=== PATIENT | male | born 1995 | race Caucasian/White ===

== ENCOUNTER 2019-06-01 21:14 | Emergency (ER) | payer SELFPAY ==
[~2019-06-01] VITALS: Ht 72 cm; Wt 65.9 kg
[2019-06-01] MEDS ORDERED: CLIN300C11 PO (21:33)
[2019-06-01] MEDS ORDERED: RX-CLINDAMYCIN 150 MG (CLEOCIN) CAP PPK#4 PO STA (21:34)
--- NOTE | 2019-06-01 21:34 | ED EENT ---
History of Present Illness General Stated Complaint: MIGRAINE SYMPTOMS/DENTAL PAIN Source: patient Exam Limitations: no limitations History of Present Illness Date Seen by Provider: Jun 01, 2019 Time Seen by Provider: 21:30 Initial Comments To ER with reports of a migraine that he relates to dental pain, he relates this dental pain to 2 fractured teeth 1 upper molar and one lower molar both on the right side. They've been fractured for quite some time. Pain started yesterday. He sees [facility] and [place]. States last time he had something similar to this he was given hydrocodone/ibuprofen and it worked very well. Timing/Duration: abrupt Severity: moderate Location: dental Associated Symptoms: denies symptoms Allergies and Home Medications Patient Home Medication List Home Medication List Reviewed: Yes Review of Systems Review of Systems Constitutional: see HPI Eyes: No Symptoms Reported Ears: No Symptoms Reported Nose: no symptoms reported Mouth: see HPI Throat: no symptoms reported Respiratory: no symptoms reported Cardiovascular: no symptoms reported Musculoskeletal: no symptoms reported Skin: no symptoms reported Past Wzhosxi-Ffgwtk-Jnswex Hx Patient Social History Recent Foreign Travel: No Contact w/Someone Who Travel: No Physical Exam Height, Weight, BMI Height: '" Weight: lbs. oz. kg; BMI Method: General Appearance: WD/WN, no apparent distress Eyes: bilateral eye normal inspection, bilateral eye PERRL, bilateral eye EOMI Ears: bilateral ear auricle normal, bilateral ear canal normal, bilateral ear TM normal Mouth/Throat: normal mouth inspection, pharynx normal, dental tenderness (but no swelling ) Neck: non-tender, full range of motion Respiratory: no respiratory distress, no accessory muscle use Gastrointestinal: normal bowel sounds, non tender Neurologic/Psychiatric: alert, normal mood/affect, oriented x 3 Skin: normal color Departure Communication (Admissions) Family Conversation These are not new fractures he states, the pain however is new. Impression Primary Impression: Pain, dental Additional Impression: Fractured tooth Disposition: HOME, SELF-CARE Condition: Stable Departure-Patient Inst. Decision time for Depature: 21:32 Referrals: NO,LOCAL PHYSICIAN (PCP/Family) Primary Care Physician Patient Instructions: Fractured Tooth, Dental Pain (DC) Add. Discharge Instructions: Applied the topical lidocaine on some gauze overlying the teeth and leave it in place for 20 or 30 minutes at a time. Antibiotics as directed. Call your dentist on Monday to make an appointment to be seen as soon as possible. Scripts Clindamycin HCl (Clindamycin HCl) 300 Mg Capsule 300 MG PO TID, #21 CAP Prov: MALIA HARRIS APRN 06/01/19 Work/School Note: Work Release Form Date Seen in the Emergency Department: Jun 01, 2019 Return to Work: Jun 02, 2019 Images Mouth/Nose 1 - Fracture Tooth 2 - Caries, Fracture Tooth MALIA HARRIS APRN Jun 01, 2019 21:34
[2019-06-01] MEDS ORDERED: LIDOCAINE 2% VISCOUS 15 ML UDC PO ONE (21:45)
[2019-06-01] MEDS ORDERED: KETOROLAC 30 MG/ML VIAL IM ONE (21:45)
[2019-06-01 21:56] VITALS: BP 119/89
== END 2019-06-01 21:56 | disposition home or self-care (01) ==
LOC: ER 21:17
DX: S02.5XXA Fracture of tooth (traumatic), initial encounter for closed fracture (principal); X58.XXXA Exposure to other specified factors, initial encounter
CPT/HCPCS: 99284

== ENCOUNTER 2021-08-16 20:01 | Emergency (ER) | payer SELFPAY ==
[~2021-08-16] VITALS: Ht 185 cm; Wt 65.0 kg
[~2021-08-16 20:01] MED LIST: CLIN-144 PO
[2021-08-16] MEDS ORDERED: KETOROLAC 60 MG/2 ML VIAL IM STA (21:12)
[2021-08-16] MEDS ORDERED: ONDANSETRON 4 MG (ZOFRAN) ORAL DISSOLVE TAB SL STA (21:12)
[2021-08-16 21:16] LABS: BILIRUBIN,URINE NEGATIVE (NEGATIVE); CLARITY,URINE CLEAR; COLOR,URINE YELLOW; GLUCOSE, URINE (UA) NEGATIVE (NEGATIVE); KETONES,URINE 2+ (NEGATIVE); LEUKOCYTE ESTERASE ,URINE NEGATIVE (NEGATIVE); NITRITE,URINE NEGATIVE (NEGATIVE); PROTEIN,URINE NEGATIVE (NEGATIVE)
--- NOTE | 2021-08-16 21:19 | ED General ---
General Chief Complaint: Fever-Adult/Adol Stated Complaint: BACK PAIN,NAUSEA,MUSA,COLD Nursing Triage Note: THE PT IS AMBULATORY TO THE ROOM WITHOUT DIFFICULTY. NO DISTRESS IS SEEN ON ARRIVAL. LOC IS NORMAL FOR THE PT. THE PT C/O FEVER AND BODYACHES. (RUEL SANTANA) History of Present Illness Date Seen by Provider: Aug 16, 2021 Time Seen by Provider: 20:25 Initial Comments 26-year-old male presents for bilateral mid back pain, headache and respiratory congestion. He denies receiving the Covid vaccine. He has not taken any medication for symptoms prior to arrival. He has mild nausea. He has not vomited. Timing/Duration: 12 Hours Severity: Mild Associated Systoms: No Chest Pain; Cough; No Diaphoresis, No Fever/Chills; Headaches, Malaise, Nausea/Vomiting; No Shortness of Air, No Weakness (RUEL SANTANA) Allergies and Home Medications Allergies Coded Allergies: amoxicillin (Verified Allergy, Unknown, 06/01/19) Patient Home Medication List Home Medication List Reviewed: Yes (RUEL SANTANA) Clindamycin HCl (Clindamycin HCl) 300 Mg Capsule, 300 MG PO TID Prescribed by: MALIA HARRIS on 06/01/192132 Review of Systems Review of Systems Constitutional: see HPI, malaise, weakness EENTM: see HPI, no symptoms reported Respiratory: see HPI, cough; No phlegm, No short of breath Cardiovascular: no symptoms reported, see HPI Gastrointestinal: see HPI; No diarrhea; nausea; No vomiting Genitourinary: no symptoms reported, see HPI (RUEL SANTANA) All Other Systems Reviewed Negative Unless Noted: Yes (RUEL SANTANA) Past Lzfiiqe-Dmsups-Abhnlf Hx Past Medical History Surgeries: No Respiratory: Yes Asthma Cardiac: No Neurological: No Genitourinary: No Gastrointestinal: No Musculoskeletal: No Endocrine: No HEENT: No Cancer: No Integumentary: No (RUEL SANTANA) Family Medical History Reviewed Nursing Family Hx (RUEL SANTANA) Physical Exam Vital Signs Vital Signs - First Documented 08/16/21 20:24 Temp 36.4 Pulse 109 Resp 16 B/P (MAP) 138/89 (105) Pulse Ox 100 (THA,SHUKRI K DO) Vital Signs Capillary Refill : Less Than 3 Seconds (RUEL SANTANA) Height, Weight, BMI Height: '" Weight: lbs. oz. kg; 18.00 BMI Method: General Appearance: No Apparent Distress, WD/WN HEENT: PERRL/EOMI, TMs Normal, Normal ENT Inspection, Pharynx Normal Neck: Full Range of Motion, Normal Inspection, Non Tender, Supple Respiratory: Chest Non Tender, Lungs Clear, Normal Breath Sounds Cardiovascular: Regular Rate, Rhythm, No Murmur, Normal Peripheral Pulses Gastrointestinal: Normal Bowel Sounds, Non Tender Back: Normal Inspection, CVA Tenderness (L), CVA Tenderness (R) Extremity: Normal Capillary Refill, Normal Inspection, Normal Range of Motion, Non Tender, No Calf Tenderness, No Pedal Edema Neurologic/Psychiatric: Alert, Oriented x3, No Motor/Sensory Deficits, Normal Mood/Affect (RUEL SANTANA) Progress/Results/Core Measures Suspected Sepsis SIRS Temperature: Pulse: 109 Respiratory Rate: 16 Blood Pressure 138 /89 Mean: 105 (RUEL SANTANA) Results/Orders Lab Results Laboratory Tests Test 08/16/21 20:20 08/16/21 21:08 Range/Units Coronavirus (COVID-19)(PCR) Positive H Negative Influenza Type A Antigen NEGATIVE NEGATIVE Influenza Type B Antigen NEGATIVE NEGATIVE SARS-CoV-2 RNA (RT-PCR) Negative Negative Urine Color YELLOW Urine Clarity CLEAR Urine pH 7.0 5-9 Urine Specific Kimberly 1.020 1.016-1.022 Urine Protein NEGATIVE NEGATIVE Urine Glucose (UA) NEGATIVE NEGATIVE Urine Ketones 2+ H NEGATIVE Urine Nitrite NEGATIVE NEGATIVE Urine Bilirubin NEGATIVE NEGATIVE Urine Urobilinogen 0.2 < = 1.0 MG/DL Urine Leukocyte Esterase NEGATIVE NEGATIVE Urine RBC (Auto) NEGATIVE NEGATIVE Urine RBC NONE /HPF Urine WBC 0-2 /HPF Urine Squamous Epithelial Cells NONE /HPF Urine Renal Epithelial Cells NONE /HPF Urine Crystals NONE /LPF Urine Bacteria NEGATIVE /HPF Urine Casts NONE /LPF Urine Mucus MODERATE H /LPF Urine Culture Indicated NO (SHUKRI ALMAZAN DO) Vital Signs/I&O 08/16/21 08/16/21 20:24 22:03 Temp 36.4 36.4 Pulse 109 109 Resp 16 16 B/P (MAP) 138/89 (105) 138/89 Pulse Ox 100 100 (SHUKRI ALMAZAN DO) Vital Signs/I&O Capillary Refill : Less Than 3 Seconds (RUEL SANTANA) Blood Pressure Mean: 105 Progress Note : Time: 20:25 Progress Note Patient seen and evaluated, will test for Covid and influenza. Will check UA. No history of kidney stones. Zofran for nausea 2100 drank 2 cups of water. patient complaining of more back pain, will give Toradol 60 mg IM. UA obtained, had not been able to urinate. 2149 UA shows 2+ ketones, recommended the patient get a liter of fluids. He reports improvement in symptoms and declines need for IV fluids. Discussed risks of dehydration. He will obtain Gatorade and Sprite on his way home. Discharge instructions and return precautions reviewed with him. (RUEL SANTANA) Departure Impression Primary Impression: Person under investigation for COVID-19 Disposition: HOME, SELF-CARE Condition: Improved Departure-Patient Inst. Decision time for Depature: 21:50 (RUEL SANTANA) Referrals: [facility],LOCAL PHYSICIAN (PCP) Primary Care Physician Patient Instructions: Cough, Runny Nose, and the Common Cold (DC), Dehydration, Adult (DC), Low Back Pain ED Add. Discharge Instructions: Increase water intake, go home and drink a large bottle of Gatorade and a bottle of water. Drink 16 ounces of water every 2 hours while awake. Follow-up at [facility] with your primary care provider if symptoms are not improving or worsen. You were tested for Covid and confirmatory test will be sent out the results will be called to you when available. You should quarantine at home until your results are called to you. You can alternate between Tylenol 650 mg and ibuprofen 600 mg every 4 hours for pain or fever. Return to the emergency department for new, urgent healthcare needs. All discharge instructions reviewed with patient and/or family. Voiced understanding. ATTENDING PHYSICIAN NOTE: I WAS PHYSICALLY PRESENT ER PHYSICIAN WHEN THIS PATIENT WAS IN ER, BUT I WAS NOT INVOLVED IN ANY DECISION MAKING OR ANY CARE OF THIS PATIENT. (SHUKRI ALMAZAN DO) RUEL SANTANA Aug 16, 2021 21:19 SHUKRI ALMAZAN DO Aug 20, 2021 05:59
[2021-08-16 21:31] LABS: BACTERIA,URINE NEGATIVE /HPF; WBC,URINE 0-2 /HPF
[2021-08-16] MEDS ORDERED: RX-ONDANSETRON 4 MG ODT (ZOFRAN) PPK #4 PO STA (21:54)
[2021-08-16 22:03] VITALS: BP 138/89
== END 2021-08-16 22:04 | disposition home or self-care (01) ==
LOC: EDUNIT# 20:01 → ER 20:06
DX: U07.1 COVID-19 (principal)
CPT/HCPCS: 81000; 87635; 87636; 87804; 99284